=== PATIENT | female | born 1985 | race Hispanic/Latino ===

== ENCOUNTER 2025-06-14 09:47 | Emergency (ER) | payer SELFPAY ==
[2025-06-14] MEDS ORDERED: Acetaminophen 500 MG TAB ONE (10:13)
[2025-06-14] MEDS ORDERED: Ketorolac Tromethamine 30 MG (1 mL) VIAL ONE (10:13)
== END 2025-06-14 13:11 | disposition home or self-care (01) ==
LOC: ERS 09:47
DX: J02.9 Acute pharyngitis, unspecified (principal)
CPT/HCPCS: 87081; 87428; 87430; 96374; J1885